=== PATIENT | male | born 1995 | race Caucasian/White ===

== ENCOUNTER 2019-09-02 16:54 | Emergency (ER) | payer OTHER ==
[~2019-09-02] VITALS: Ht 190.5 cm; Wt 81.7 kg
[2019-09-02] MEDS ORDERED: IBUP400 PO (18:20)
== END 2019-09-02 18:45 | disposition home or self-care (01) ==
LOC: ER 16:54
DX: S89.81XA Other specified injuries of right lower leg, initial encounter (principal); V00.131A Fall from skateboard, initial encounter
CPT/HCPCS: 29505; 73562-RT; 99283-25

== ENCOUNTER 2020-07-27 16:34 | Observation (INO) | payer OTHER ==
[~2020-07-27] VITALS: Ht 190.5 cm; Wt 74.8 kg
[~2020-07-27 16:34] MED LIST: IBUP400 PO; IBUP800 PO; Robaxin-750750 MG PO
[2020-07-27] MEDS ORDERED: METPHE18ER PO (16:40)
[2020-07-27 17:07] LABS: BASOPHILS ABSOLUTE AUTO 0.03 K/mm3 (0.00-0.23); BASOPHILS PERCENT AUTO 0 % (0-2); EOSINOPHILS ABSOLUTE AUTO 0.05 K/mm3 (0.00-0.68); EOSINOPHILS PERCENT AUTO 1 % (0-6); Hemoglobin 16.6 g/dL (13.5-17.5); IMMATURE GRAN ABSOLUTE AUTO 0.04 K/mm3 (0.00-0.10); IMMATURE GRAN PERCENT AUTO 0 % (0-1); LYMPHOCYTES ABSOLUTE AUTO 1.98 K/mm3 (0.84-5.20); LYMPHOCYTES PERCENT AUTO 19 % (21-46); MONOCYTES ABSOLUTE AUTO 0.96 K/mm3 (0.16-1.47); MONOCYTES PERCENT AUTO 9 % (4-13); Mean Corpuscular HGB 30.2 pg (26.0-34.0); Mean Corpuscular HGB Conc 34.6 g/dL (31.5-36.5); Mean Corpuscular Volume 87 fL (80-100); Mean Platelet Volume 9.9 fL (9.1-12.4); NEUTROPHILS ABSOLUTE AUTO 7.12 K/mm3 (1.96-9.15); NEUTROPHILS PERCENT AUTO 70 % (41-73); Platelet Count 262 K/mm3 (150-400); RDW Coefficient Variation 12.4 % (11.7-14.2); RDW Standard Deviation 39.2 fL (35.1-46.3); Red Blood Cell Count 5.49 M/mm3 (4.30-5.90); White Blood Cell Count 10.18 K/mm3 (4.00-11.30)
[2020-07-27 17:44] LABS: Ethanol (Alcohol), Blood, Med <3 mg/dL; Salicylate <1.7 mg/dL (2.8-20.0)
[2020-07-27 17:46] LABS: Alanine Aminotransfer (ALT/SGP 20 U/L (12-78); Albumin, Blood 4.1 g/dL (3.4-5.0); Albumin/Globulin Ratio 1.1 (0.8-1.8); Alk Phos 74 U/L (50-136); Anion Gap 4 mmol/L (6-16); Aspartate Aminotrans (AST/SGOT 22 U/L (12-37); Bilirubin, Total 0.7 mg/dL (0.1-1.0); Blood Urea Nitrogen 19 mg/dL (8-24); Bun/Creatinine Ratio 23.4 (12.0-20.0); CO2, Blood 26 mmol/L (21-32); Calcium, Blood 8.9 mg/dL (8.5-10.1); Chloride, Blood 108 mmol/L (98-108); Creatinine, Blood 0.81 mg/dL (0.60-1.20); Globulin, Blood 3.8 g/dL (2.2-4.0); Glomerular Filtration Rate >60 (60-); Glucose, Blood 68 mg/dL (70-99); Potassium, Blood 3.6 mmol/L (3.5-5.5); Sodium, Blood 138 mmol/L (136-145); Total Protein, Blood 7.9 g/dL (6.4-8.2)
[2020-07-27 18:02] LABS: Acetaminophen, Random <2.0 ug/mL (10.0-30.0)
[2020-07-27 18:58] LABS: Source, Urine Clean Catch
[2020-07-27 19:11] LABS: Appearance, Urine Clear (Clear); Bilirubin, Urine Neg (Neg); Blood, Urine Neg (Neg); Color, Urine Yellow (P-Yellow); Glucose Qualitative, Urine Neg (Neg); Ketones, Urine Neg (Neg); Leukocyte Esterase, Urine Neg (Neg); Nitrite, Urine Neg (Neg); Protein, Urine Neg (Neg); Urobilinogen, Urine NORM (Normal)
[2020-07-27 19:22] LABS: U Amphetamine Screen Not Detected; U Barbituate Screen Not Detected; U Benzodiazapine Screen Not Detected; U Buprenorphine Screen Not Detected; U Cannabinoids Screen Not Detected; U Cocaine Screen Not Detected; U Methadone Screen Not Detected; U Methamphetamine Screen Not Detected; U Opiates Screen Not Detected; U Oxycodone Screen Not Detected; U Phencyclidine Screen Not Detected; U Propoxyphene Screen Not Detected
== END 2020-07-30 15:53 | disposition home or self-care (01) ==
LOC: ER 16:34 → EOR 16:35
PROVIDERS: Physician Assistant; ADMIT Emergency Medicine
DX: F33.9 Major depressive disorder, recurrent, unspecified (principal); R45.851 Suicidal ideations; F63.81 Intermittent explosive disorder; F60.2 Antisocial personality disorder; N48.6 Induration penis plastica; F90.2 Attention-deficit hyperactivity disorder, combined type
CPT/HCPCS: 80053; 81003; 85025; 99285; A9270; G0378; G0480; Q3014

== ENCOUNTER 2020-08-25 20:08 | Emergency (ER) | payer OTHER ==
[~2020-08-25] VITALS: Ht 190.5 cm; Wt 74.8 kg
[~2020-08-25 20:08] MED LIST changes: +METPHE18ER PO
== END 2020-08-25 22:20 | disposition home or self-care (01) ==
LOC: ER 20:08
DX: S40.022A Contusion of left upper arm, initial encounter (principal); Z88.8 Allergy status to other drugs, medicaments and biological substances; W22.8XXA Striking against or struck by other objects, initial encounter
CPT/HCPCS: 73090; 99283-25

== ENCOUNTER 2021-06-01 14:10 | Emergency (ER) | payer OTHER ==
[~2021-06-01] VITALS: Ht 190.5 cm; Wt 76.9 kg
[2021-06-01] MEDS ORDERED: LIDO700A20 TOP (14:59)
[2021-06-01] MEDS ORDERED: CYCL10 PO (14:59)
== END 2021-06-01 15:22 | disposition home or self-care (01) ==
LOC: ER 14:10
DX: S46.911A Strain of unspecified muscle, fascia and tendon at shoulder and upper arm level, right arm, initial encounter (principal); X50.0XXA Overexertion from strenuous movement or load, initial encounter
CPT/HCPCS: 96372; 99283-25; A9270; J1885

== ENCOUNTER 2021-06-02 14:06 | Emergency (ER) | payer OTHER ==
[~2021-06-02] VITALS: Ht 190.5 cm; Wt 76.7 kg
[~2021-06-02 14:06] MED LIST changes: +CYCL10 PO; +LIDO700A20 TOP
== END 2021-06-02 14:50 | disposition home or self-care (01) ==
LOC: ER 14:06
DX: U07.1 COVID-19 (principal)
CPT/HCPCS: 96372; 99282-25; A9270; J1885

== ENCOUNTER 2021-06-04 14:29 | Emergency (ER) | payer OTHER ==
[~2021-06-04] VITALS: Ht 190.5 cm; Wt 72.6 kg
[2021-06-04 15:38] LABS: Influenza A, PCR NEGATIVE (NEGATIVE); Influenza B, PCR NEGATIVE (NEGATIVE); Resp Syncytial Virus, PCR NEGATIVE (NEGATIVE)
[2021-06-04 16:21] LABS: SARS-Cov-2 (COVID-19) PCR, MMC POSITIVE (NEGATIVE)
[2021-06-04] MEDS ORDERED: ONDA4ODT MM (16:32)
== END 2021-06-04 17:00 | disposition home or self-care (01) ==
LOC: ER 14:29
PROVIDERS: Student in an Organized Health Care Education/Training Program
DX: U07.1 COVID-19 (principal)
CPT/HCPCS: 0241U; 71045; 96374; 96375; 99283-25; J1885; J2765; J7030

== ENCOUNTER 2022-02-01 19:13 | Emergency (ER) | payer OTHER ==
[~2022-02-01] VITALS: Ht 190.5 cm; Wt 83.0 kg
[~2022-02-01 19:13] MED LIST changes: +ONDA4ODT MM
== END 2022-02-01 21:00 | disposition home or self-care (01) ==
LOC: ER 19:13
DX: S80.01XA Contusion of right knee, initial encounter (principal); W22.09XA Striking against other stationary object, initial encounter; Z79.899 Other long term (current) drug therapy
CPT/HCPCS: 73562-RT; A9270

== ENCOUNTER 2022-08-24 19:54 | Emergency (ER) | payer OTHER ==
[~2022-08-24] VITALS: Ht 185.4 cm; Wt 80.7 kg
== END 2022-08-24 21:29 | disposition home or self-care (01) ==
LOC: ER 19:54
DX: M25.561 Pain in right knee (principal); X50.1XXA Overexertion from prolonged static or awkward postures, initial encounter
CPT/HCPCS: 73562-RT

== ENCOUNTER 2022-10-10 11:00 | Emergency (ER) | payer OTHER ==
[~2022-10-10] VITALS: Ht 188 cm; Wt 79.4 kg
[2022-10-10 11:09] VITALS: BP 128/73
== END 2022-10-10 11:57 | disposition home or self-care (01) ==
LOC: ER 11:00
DX: S50.812A Abrasion of left forearm, initial encounter (principal); V28.49XA Other motorcycle driver injured in noncollision transport accident in traffic accident, initial encounter
CPT/HCPCS: 99283

== ENCOUNTER 2023-02-04 19:27 | Emergency (ER) | payer OTHER ==
[~2023-02-04] VITALS: Ht 190.5 cm; Wt 79.4 kg
[2023-02-04 19:42] VITALS: BP 134/70
== END 2023-02-04 20:49 | disposition home or self-care (01) ==
LOC: ER 19:27
DX: J06.9 Acute upper respiratory infection, unspecified (principal); F17.290 Nicotine dependence, other tobacco product, uncomplicated; Z20.822 Contact with and (suspected) exposure to COVID-19
CPT/HCPCS: 99282

== ENCOUNTER 2023-02-11 13:42 | Emergency (ER) | payer OTHER ==
[~2023-02-11] VITALS: Ht 190.5 cm; Wt 79.4 kg
[2023-02-11 13:48] VITALS: BP 146/66
== END 2023-02-11 15:06 | disposition home or self-care (01) ==
LOC: ER 13:42
DX: T63.441A Toxic effect of venom of bees, accidental (unintentional), initial encounter (principal); X58.XXXA Exposure to other specified factors, initial encounter; F17.290 Nicotine dependence, other tobacco product, uncomplicated
CPT/HCPCS: 99282

== ENCOUNTER 2023-12-05 17:39 | Emergency (ER) | payer OTHER ==
[~2023-12-05] VITALS: Ht 185.4 cm; Wt 83.9 kg
[2023-12-05 19:07] LABS: BASOPHILS ABSOLUTE AUTO 0.04 K/mm3 (0.00-0.23); BASOPHILS PERCENT AUTO 1 % (0-2); EOSINOPHILS ABSOLUTE AUTO 0.16 K/mm3 (0.00-0.68); EOSINOPHILS PERCENT AUTO 2 % (0-6); Hematocrit 45.4 % (37.0-53.0); Hemoglobin 15.8 g/dL (13.5-17.5); IMMATURE GRAN ABSOLUTE AUTO 0.04 K/mm3 (0.00-0.10); IMMATURE GRAN PERCENT AUTO 1 % (0-1); LYMPHOCYTES ABSOLUTE AUTO 2.18 K/mm3 (0.84-5.20); LYMPHOCYTES PERCENT AUTO 27 % (21-46); MONOCYTES ABSOLUTE AUTO 0.77 K/mm3 (0.16-1.47); MONOCYTES PERCENT AUTO 10 % (4-13); Mean Corpuscular HGB 29.8 pg (26.0-34.0); Mean Corpuscular HGB Conc 34.8 g/dL (31.5-36.5); Mean Corpuscular Volume 86 fL (80-100); Mean Platelet Volume 9.9 fL (9.1-12.4); NEUTROPHILS ABSOLUTE AUTO 4.78 K/mm3 (1.96-9.15); NEUTROPHILS PERCENT AUTO 60 % (41-73); Platelet Count 264 K/mm3 (150-400); RDW Standard Deviation 39.6 fL (35.1-46.3); Red Blood Cell Count 5.31 M/mm3 (4.30-5.90); White Blood Cell Count 7.97 K/mm3 (4.00-11.30)
[2023-12-05 19:40] LABS: Albumin, Blood 4.2 g/dL (3.4-5.0); Albumin/Globulin Ratio 1.1 (0.8-1.8); Bilirubin, Total 0.5 mg/dL (0.1-1.0); Bun/Creatinine Ratio 19.7 (12.0-20.0); Calcium, Blood 8.9 mg/dL (8.5-10.1); Creatinine, Blood 0.91 mg/dL (0.60-1.20); Globulin, Blood 3.7 g/dL (2.2-4.0); Potassium, Blood 4.4 mmol/L (3.5-5.5); Total Protein, Blood 7.9 g/dL (6.4-8.2)
[2023-12-05 22:07] LABS: Source, Urine Clean Catch
[2023-12-05 22:09] LABS: Bilirubin, Urine Neg (Neg); Blood, Urine Neg (Neg); Glucose Qualitative, Urine Neg (Neg); Ketones, Urine Neg (Neg); Leukocyte Esterase, Urine Neg (Neg); Nitrite, Urine Neg (Neg); Protein, Urine Neg (Neg); Urobilinogen, Urine NORM (Normal); pH, Urine 6.5 (5.0-8.0)
[2023-12-05 22:16] LABS: Appearance, Urine Clear (Clear); Color, Urine Pale Yellow (P-Yellow)
[2023-12-05 23:00] VITALS: BP 133/69
[2023-12-05] MEDS ORDERED: Ketorolac Tromethamine 30mg Vial IV ONE (23:00)
== END 2023-12-05 23:18 | disposition home or self-care (01) ==
LOC: ER 17:39
PROVIDERS: Student in an Organized Health Care Education/Training Program
DX: R10.9 Unspecified abdominal pain (principal); F17.290 Nicotine dependence, other tobacco product, uncomplicated; W01.0XXA Fall on same level from slipping, tripping and stumbling without subsequent striking against object, initial encounter
CPT/HCPCS: 74177; 80053; 81003; 85025; 93005; 93010; 96374-59; 99284-25; J1885; Q9967

== ENCOUNTER 2024-02-01 07:55 | Emergency (ER) | payer OTHER ==
[~2024-02-01] VITALS: Ht 190.5 cm; Wt 86.0 kg
[2024-02-01 08:08] VITALS: BP 150/91
[2024-02-01] MEDS ORDERED: ESCI10 PO (08:13)
[2024-02-01] MEDS ORDERED: Ibuprofen 400 MG Tab PO ONE (09:10)
== END 2024-02-01 09:21 | disposition home or self-care (01) ==
LOC: ER 07:55
DX: S80.811A Abrasion, right lower leg, initial encounter (principal); S49.91XA Unspecified injury of right shoulder and upper arm, initial encounter; F17.290 Nicotine dependence, other tobacco product, uncomplicated; V00.131A Fall from skateboard, initial encounter
CPT/HCPCS: 73030; 99283-25; A9270

== ENCOUNTER 2024-03-14 14:24 | Emergency (ER) | payer OTHER ==
[~2024-03-14] VITALS: Ht 190.5 cm; Wt 70.3 kg
[~2024-03-14 14:24] MED LIST changes: +ESCI10 PO
[2024-03-14 14:35] VITALS: BP 141/81
[2024-03-14 15:14] LABS: BASOPHILS ABSOLUTE AUTO 0.03 K/mm3 (0.00-0.23); BASOPHILS PERCENT AUTO 1 % (0-2); EOSINOPHILS ABSOLUTE AUTO 0.14 K/mm3 (0.00-0.68); EOSINOPHILS PERCENT AUTO 2 % (0-6); Hematocrit 45.7 % (37.0-53.0); Hemoglobin 15.9 g/dL (13.5-17.5); IMMATURE GRAN ABSOLUTE AUTO 0.03 K/mm3 (0.00-0.10); IMMATURE GRAN PERCENT AUTO 1 % (0-1); LYMPHOCYTES ABSOLUTE AUTO 1.59 K/mm3 (0.84-5.20); LYMPHOCYTES PERCENT AUTO 24 % (21-46); MONOCYTES ABSOLUTE AUTO 0.78 K/mm3 (0.16-1.47); MONOCYTES PERCENT AUTO 12 % (4-13); Mean Corpuscular HGB 30.1 pg (26.0-34.0); Mean Corpuscular HGB Conc 34.8 g/dL (31.5-36.5); Mean Corpuscular Volume 87 fL (80-100); Mean Platelet Volume 10.1 fL (9.1-12.4); NEUTROPHILS ABSOLUTE AUTO 4.06 K/mm3 (1.96-9.15); NEUTROPHILS PERCENT AUTO 61 % (41-73); Platelet Count 228 K/mm3 (150-400); RDW Coefficient Variation 12.6 % (11.7-14.2); RDW Standard Deviation 39.7 fL (35.1-46.3); Red Blood Cell Count 5.28 M/mm3 (4.30-5.90); White Blood Cell Count 6.63 K/mm3 (4.00-11.30)
[2024-03-14 15:37] LABS: Albumin, Blood 3.9 g/dL (3.4-5.0); Bilirubin, Total 0.4 mg/dL (0.1-1.0); Bun/Creatinine Ratio 21.1 (12.0-20.0); Calcium, Blood 9.4 mg/dL (8.5-10.1); Creatinine, Blood 0.9 mg/dL (0.60-1.20); Globulin, Blood 3.9 g/dL (2.2-4.0); Potassium, Blood 4.2 mmol/L (3.5-5.5); Total Protein, Blood 7.8 g/dL (6.4-8.2)
== END 2024-03-14 16:16 | disposition home or self-care (01) ==
LOC: ER 14:24
PROVIDERS: Emergency Medicine
DX: J40 Bronchitis, not specified as acute or chronic (principal); J06.9 Acute upper respiratory infection, unspecified; F17.290 Nicotine dependence, other tobacco product, uncomplicated; Z79.899 Other long term (current) drug therapy
CPT/HCPCS: 71046; 80053; 85025; 99283-25

== ENCOUNTER 2024-06-05 10:17 | Emergency (ER) | payer OTHER ==
[~2024-06-05] VITALS: Ht 190.5 cm; Wt 74.8 kg
[2024-06-05 10:19] VITALS: BP 139/79
== END 2024-06-05 15:03 | disposition home or self-care (01) ==
LOC: ER 10:17
DX: S89.91XA Unspecified injury of right lower leg, initial encounter (principal); X50.9XXA Other and unspecified overexertion or strenuous movements or postures, initial encounter
CPT/HCPCS: 73562-RT; 99283-25

== ENCOUNTER 2025-02-19 19:29 | Emergency (ER) | payer OTHER ==
[~2025-02-19] VITALS: Ht 190.5 cm; Wt 79.4 kg
[2025-02-19 19:33] VITALS: BP 134/69
[2025-02-19] MEDS ORDERED: IBUP600 PO (22:12)
[2025-02-19] MEDS ORDERED: ACET500 PO (22:12)
== END 2025-02-19 22:17 | disposition home or self-care (01) ==
LOC: ER 19:29
DX: M25.562 Pain in left knee (principal); S82.002A Unspecified fracture of left patella, initial encounter for closed fracture; W22.01XA Walked into wall, initial encounter; Z79.899 Other long term (current) drug therapy
CPT/HCPCS: 73562-LT; 99283-25